=== PATIENT | female | born 1965 | race Caucasian/White ===

== ENCOUNTER 2016-06-23 19:09 | Emergency (ER) | payer BC ==
[2016-06-23] MEDS ORDERED: ORPHENADRINE 60 MG/2 ML AMP ONE (20:52)
[2016-06-23] MEDS ORDERED: KETOROLAC 60 MG/2 ML VIAL IM ONE (20:53)
== END 2016-06-23 22:12 | disposition home or self-care (01) ==
LOC: ER 19:09
DX: S80.212A Abrasion, left knee, initial encounter (principal); S80.812A Abrasion, left lower leg, initial encounter; S00.83XA Contusion of other part of head, initial encounter; S40.011A Contusion of right shoulder, initial encounter; S50.01XA Contusion of right elbow, initial encounter; S80.02XA Contusion of left knee, initial encounter; S80.12XA Contusion of left lower leg, initial encounter; S83.412A Sprain of medial collateral ligament of left knee, initial encounter; S83.422A Sprain of lateral collateral ligament of left knee, initial encounter; W10.9XXA Fall (on) (from) unspecified stairs and steps, initial encounter; Y93.82 Activity, spectator at an event; Y92.218 Other school as the place of occurrence of the external cause
CPT/HCPCS: 96372